=== PATIENT | male | born 1995 | race Caucasian/White ===

== ENCOUNTER 2021-07-12 17:52 | Emergency (ER) | payer BC, OTHER ==
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
== END 2021-07-12 18:56 | disposition home or self-care (01) ==
LOC: VM.ED 17:52
DX: S51.811A Laceration without foreign body of right forearm, initial encounter (principal); W25.XXXA Contact with sharp glass, initial encounter
CPT/HCPCS: 12002; 99282-25; 99283